=== PATIENT | male | born 1955 | race Caucasian/White ===

== ENCOUNTER 2021-09-28 05:48 | Day surgery (SDC) | payer BC ==
[2021-09-28] MEDS ORDERED: Lactated Ringers 1,000 ML IV SCH (07:00)
[2021-09-28] MEDS ORDERED: DIPRIVAN 200 MG/20 ML IV ONE ×2 (07:55→08:21)
[2021-09-28] MEDS ORDERED: Versed 2 MG/2 ML Injection ONE (07:56)
[2021-09-28] MEDS ORDERED: Ephedrine Sulfate 50 MG/ML ONE (08:59)
[2021-09-28 10:05] VITALS: BP 131/74; PULSE 63; O2SAT 96
--- NOTE | 2021-09-28 13:03 | OP ---
SURGERY DATE/TIME: 09/28/2021 0758 PREOPERATIVE DIAGNOSIS: Screening colonoscopy. POSTOPERATIVE DIAGNOSIS: Sigmoid colon polyp. PROCEDURE: Screening colonoscopy. SURGEON: Chato Lr M.D. ANESTHESIA: MAC by Antonio Jimenez CRNA. ESTIMATED BLOOD LOSS: Minimal. SPECIMENS: Hot snare polypectomy from the sigmoid colon x1. DESCRIPTION OF PROCEDURE: After informed written consent was obtained, the patient was taken to the endoscopy suite. He was placed in left lateral decubitus position and anesthesia was titrated to desired level of consciousness. Digital rectal exam showed normal sphincter tone and no internal lesions. The scope was inserted into the rectum and sequentially the entire colonic mucosa was traversed. The level of cecum was reached and verified with direct visualization of the ileocecal valve. In the proximal sigmoid colon, there was a sessile polyp which was removed with some difficulty initially attempted with forceps. It was grasped and cauterized. The entire lesion was difficult to grasp. Unable to be removed in its entirety therefore it was switched to a snare. With some difficulty the lesion was snared and removed at the base with no active bleeding. Following removal it was retrieved in a trap and sent for pathology testing. The remainder of the exam was unremarkable. There is minimal internal hemorrhoids on retroflexion. No other lesions. The scope was removed and the patient was transferred to the recovery room in good condition.
== END 2021-09-28 10:09 | disposition home or self-care (01) ==
LOC: SDC 05:48
PROVIDERS: ATTEND Family Medicine
DX: Z12.11 Encounter for screening for malignant neoplasm of colon (principal); D12.5 Benign neoplasm of sigmoid colon; K64.8 Other hemorrhoids
CPT/HCPCS: 88305; J2250; J2704